=== PATIENT | male | born 1985 | race Caucasian/White ===

== ENCOUNTER → 2017-12-18 | Outpatient (REF) | payer OTHER | LOC: M LAB REF 18:26 | DX: J02.9 Acute pharyngitis, unspecified (principal) | CPT/HCPCS: 87430 ==

== ENCOUNTER 2025-01-18 13:27 | Emergency (ER) | payer OTHER ==
[~2025-01-18] VITALS: Ht 188 cm; Wt 89.6 kg
[2025-01-18 13:31] VITALS: TEMP 97
[2025-01-18 14:25] LABS: BASO % 0.7 % (0.0-1.0); EOS # 0.2 10^3/uL (0.0-0.5); EOS % 3.4 % (0.0-3.0); HEMATOCRIT 39.4 % (42.0-52.0); HEMOGLOBIN 13.8 g/dl (13.5-17.5); LYMPH # 1.8 10^3/uL (1.5-5.0); LYMPH % 31.7 % (24.0-44.0); MEAN CORPUSCULAR HEMOGLOBIN 32.3 pg (27.0-33.0); MEAN CORPUSCULAR VOLUME 92.3 fl (80.0-96.0); MONO # 0.5 10^3/uL (0.0-0.8); MONO % 8.3 % (2.0-8.0); NEUTROPHILS # 3.1 10^3/uL (1.5-8.5); NEUTROPHILS % 55.9 % (36.0-66.0); PLATELET COUNT, AUTOMATED 282 10^3/uL (150-450); RED BLOOD COUNT 4.27 10^6/uL (4.30-6.10); WHITE BLOOD COUNT 5.5 10^3/uL (4.0-10.0)
[2025-01-18] MEDS: MAALOX 30 ML SUSP *UDC PO ONE (14:33)
[2025-01-18] MEDS: LIDOCAINE VISCOUS 2% SOLN 15ML UDC PO ONE (14:33)
[2025-01-18 14:57] LABS: LIPASE 38 U/L (12-53)
[2025-01-18 14:59] LABS: CPK CREATINE PHOSPHOKINASE 286 U/L (46-171)
[2025-01-18 15:00] LABS: ALBUMIN 4.2 G/DL (3.2-5.2); ALKALINE PHOSPHATASE 57 U/L (40-129); ALT/SGPT 28 U/L (7.0-40); AST/SGOT 25 U/L (<34); BILIRUBIN,DIRECT 0.4 MG/DL (<0.4); BILIRUBIN,TOTAL 1.3 MG/DL (0.3-1.2); BLOOD UREA NITROGEN 19 MG/DL (9-23); CALCIUM LEVEL 9.2 MG/DL (8.5-10.1); CARBON DIOXIDE LEVEL 30 MMOL/L (20-31); CHLORIDE LEVEL 107 MMOL/L (98-107); GLOMERULAR FILTRATION RATE > 90.0 (>60); GLUCOSE, FASTING 77 MG/DL (60-100); POTASSIUM SERUM 3.7 MMOL/L (3.5-5.1); SODIUM LEVEL 145 MMOL/L (136-145); TOTAL PROTEIN 6.8 G/DL (5.7-8.2)
[2025-01-18 15:10] LABS: D-DIMER QUANT < 0.27 ug/mL (<0.5); INR 1.06; PARTIAL THROMBOPLASTIN TIME 36.2 SECONDS (24.8-34.2); PROTHROMBIN TIME 14.1 SECONDS (12.5-14.5)
[2025-01-18 15:39] LABS: CK-MB VALUE MASS 1.9 NG/ML (<3.6); MB/CK RELATIVE INDEX 0.66 (< OR =4)
[2025-01-18 15:44] LABS: THYROID STIMULATING HORMONE 0.741 uIU/ML (0.55-4.78)
[2025-01-18 16:36] LABS: CK-MB VALUE MASS 1.7 NG/ML (<3.6); MB/CK RELATIVE INDEX 0.72 (< OR =4)
[2025-01-18] MEDS ORDERED: OMEP40CA4 PO (17:14)
[2025-01-18] MEDS ORDERED: SUCR1TA PO (17:14)
[2025-01-18 17:15] VITALS: BP 117/74; O2SAT 98
== END 2025-01-18 17:20 | disposition home or self-care (01) ==
LOC: M ED 13:27
DX: R07.9 Chest pain, unspecified (principal); K21.9 Gastro-esophageal reflux disease without esophagitis; Z79.899 Other long term (current) drug therapy